=== PATIENT | female | born 1995 | race Caucasian/White ===

== ENCOUNTER 2025-07-20 13:49 | Emergency (ER) | payer OTHER ==
[~2025-07-20] VITALS: Ht 154.9 cm; Wt 50.8 kg
[2025-07-20 13:52] VITALS: BP 132/88; TEMP 98.3; O2SAT 98
== END 2025-07-20 14:49 | disposition home or self-care (01) ==
LOC: ER 13:56
DX: M79.5 Residual foreign body in soft tissue (principal)
CPT/HCPCS: 73590-TC